=== PATIENT | female | born 1955 | race Caucasian/White ===

== ENCOUNTER 2018-11-02 20:15 | Emergency (ER) | payer MEDICARE, OTHER, SELFPAY ==
--- NOTE | 2018-11-02 20:36 | ED_ITS ---
HPI - Headache General Chief Complaint: Headache Stated Complaint: headache,jaw pain Time Seen by Provider: 11/02/18 20:28 Source: patient and family Mode of arrival: ambulatory Limitations: no limitations History of Present Illness HPI Narrative: 63-year-old female nonsmoker with sleep trouble presnts with a friend and the chief complaint of multiple episodes of severe left-sided head pain and radiation to the jaw over the course of the afternoon. She denies provocation or palliation. She states the episodes last a few minutes at most. She denies blurred vision or trouble with speech nor any other focal neurologic symptoms such as numbness, tingling or weakness. She denies any recent injury. She denies recent change in diet, exercise or medications. She does not have a significant headache history. She has no symptoms on arrival MD Complaint: headache Onset (ago): hour(s) Onset description: sudden Location: left Severity: moderate Quality: throbbing Relieving factors: nothing Exacerbating factors: none Associated symptoms: none Treatments prior to arrival: none Related Data Home Medications Medication Instructions Recorded Confirmed amitriptyline QDAY #0 03/16/17 11/02/18 calcitonin (salmon) #0 03/16/17 11/02/18 fluticasone propionate [Flonase #0 03/16/17 11/02/18 Allergy Relief] oxycodone-acetaminophen #0 03/16/17 11/02/18 wjoqzzl-[id number]-viis tab PO 11/02/18 11/02/18 clobetasol 0.05 % topical ointment 1 applictn TOP DAILY 11/02/18 11/02/18 estradiol VAG 11/02/18 11/02/18 lamotrigine 100 mg tablet 200 mg PO BID 11/02/18 11/02/18 losartan 50 mg tablet 50 mg PO DAILY 11/02/18 11/02/18 omeprazole 20 mg capsule,delayed 20 mg PO DAILY 11/02/18 11/02/18 release pramipexole 1 mg tablet 2 mg PO BID #0 tab 11/02/18 11/02/18 tolterodine 2 mg tablet 2 mg PO BID #0 tab 11/02/18 11/02/18 topiramate 100 mg tablet 200 mg PO BEDTIME #0 tab 11/02/18 11/02/18 tramadol 50 mg tablet 100 mg PO BID #0 tab 11/02/18 11/02/18 Allergies Allergy/AdvReac Type Severity Reaction Status Date / Time ketorolac [From TORADOL] Allergy Unknown Stomach Verified 11/02/18 20:41 Pain Penicillins [PENICILLINS] Allergy Unknown Swelling Verified 11/02/18 20:41 adhesive tape Allergy Skin Verified 11/02/18 20:41 Irritation lisinopril Allergy Muscle Pain Verified 11/02/18 20:41 Statins Allergy Severe Uncoded 11/02/18 14:02 Muscle pain Review of Systems Constitutional Constitutional: Denies chills, Denies fatigue, Denies fever(s), Denies frequent falls, Reports headache(s), Denies lethargy and Denies weakness Eyes Eyes: Denies change in vision, Denies eye discharge, Denies irritation and Denies loss of vision ENT Ears, Nose, Mouth, and Throat: Denies change in voice, Denies dizziness, Reports headache(s), Denies neck pain, Denies sore throat and Denies throat swelling Cardiovascular Cardiovascular: Denies chest pain, Denies irregular heart rhythm, Denies lightheadedness, Denies palpitations, Denies dyspnea, Denies dyspnea on exertion and Denies orthopnea Respiratory Respiratory: Denies cough, Denies dyspnea, Denies dyspnea on exertion and Denies wheezing Gastrointestinal Gastrointestinal: Denies abdominal pain, Denies change in bowel habits, Denies diarrhea, Denies nausea and Denies vomiting Genitourinary Genitourinary: Denies hematuria, Denies flank pain, Denies urinary incontinence and Denies urinary urgency Musculoskeletal Musculoskeletal: Denies back pain, Denies muscle weakness, Denies neck pain, Denies numbness and Denies tingling Integumentary/Breasts Skin/Breast: Denies pruritus, Denies erythema, Denies rash and Denies wounds Neurologic Neurologic: Denies behavioral changes, Denies confusion, Denies dizziness, Denies frequent falls, Reports headache(s), Denies loss of vision, Denies numbness, Denies tingling and Denies weakness Psychiatric Psychiatric: Denies anxiety, Denies behavioral changes, Denies confusion, Denies depression, Denies homicidal ideation and Denies suicidal ideation Endocrine Endocrine: Denies fatigue, Denies flushing and Denies palpitations Hematologic/Lymphatic Hematologic/Lymphatic: Denies easy bruising Allergic/Immunologic Allergic/Immunologic: Denies urticaria, Denies throat swelling and Denies wheezing PFSH Surgical History History of tonsillectomy Status post appendectomy Status post cholecystectomy Status post hernia repair (11/15/16) Status post hysterectomy Family History Brother Age: 66 Prostate cancer Heart disease Hypertension High cholesterol Brother Age: 69 Hypertension High cholesterol Brother Age: 71 Hypertension High cholesterol Depression Father Skin cancer High cholesterol Mother Breast cancer Brain tumor Stroke Grandfather Paranoid schizophrenia Stroke Grandmother Hypertension Sister Age: 80 Hypertension High cholesterol Sister Age: 77 Hypertension High cholesterol Social History Smoking Status: Never smoker Family History Brother Age: 66 Prostate cancer Heart disease Hypertension High cholesterol Brother Age: 69 Hypertension High cholesterol Brother Age: 71 Hypertension High cholesterol Depression Father Skin cancer High cholesterol Mother Breast cancer Brain tumor Stroke Grandfather Paranoid schizophrenia Stroke Grandmother Hypertension Sister Age: 80 Hypertension High cholesterol Sister Age: 77 Hypertension High cholesterol Social History Smoking Status: Never smoker Exam Narrative Exam Narrative: GENERAL: [63] year old patient appears stated age. Well- nourished, well-developed patient, in mild distress. HEAD: Atraumatic. Normocephalic. No pain on palpation of the jainism, no palpable blood vessels EYES: Pupils equal round and reactive. Extraocular motions intact. No scleral icterus. No injection or drainage. ENT: Nose without bleeding, purulent drainage. Throat without erythema, tonsillar hypertrophy or exudate. Airway patent. NECK: Trachea midline. Non tender CARDIOVASCULAR: Regular rate and rhythm without murmurs, gallops, or rubs. RESPIRATORY: Clear to auscultation. Breath sounds equal bilaterally. No wheezes, rales, or rhonchi. GASTROINTESTINAL: Abdomen soft, non-tender, nondistended. EXTREMITIES: No edema or joint tenderness. BACK: Nontender without deformity or crepitance. No flank tenderness. NEURO: AOx3. SKIN: No rash or erythema of visible areas Initial Vital Signs Initial Vital Signs: Vital Signs Temperature 97.9 F 11/02/18 20:41 Pulse Rate 70 11/02/18 20:41 Respiratory Rate 16 11/02/18 20:41 Blood Pressure 115/80 11/02/18 20:41 Pulse Oximetry 100 11/02/18 20:41 Course Orders Ordered: ED Orders 11/02/18 21:23 CT head/brain wo con Stat 11/02/18 21:30 Basic Metabolic Panel Stat C-Reactive Protein Quant Stat Complete Blood Count AUTO DIFF Stat Erythrocyte Sedimentation Rate Stat Discontinued Medications Dexamethasone (Decadron) 10 mg IV NOW ONE Stop: 11/02/18 21:22 Last Admin: 11/02/18 21:50 Dose: 10 mg Documented by: INES Diphenhydramine HCl (Benadryl) 25 mg IV NOW ONE Stop: 11/02/18 21:22 Last Admin: 11/02/18 21:45 Dose: 25 mg Documented by: INES Sodium Chloride (Normal Saline 0.9%) 1,000 mls @ 1,000 mls/hr IV BOLUS ONE Stop: 11/02/18 22:20 Last Infusion: 11/02/18 23:23 Dose: 0 mls/hr Documented by: Admin: 11/02/18 21:45 Dose: 1,000 mls/hr Documented by: INES Metoclopramide HCl (Reglan) 10 mg IV NOW ONE Stop: 11/02/18 21:22 Last Admin: 11/02/18 21:48 Dose: 10 mg Documented by: INES Reevaluation(s) Reevaluation #1: Significant improvement after above-stated therapies Vital Signs Vital signs: Vital Signs - 8 hr 11/02/18 20:41 11/02/18 23:10 Temperature 97.9 F Pulse Rate 70 72 Respiratory Rate 16 18 Blood Pressure 115/80 Blood Pressure [Left Arm] 112/84 Pulse Oximetry 100 98 MDM - Headache Lab Data Result diagrams: 11/02/18 21:30 11/02/18 21:30 Labs: Lab Results 11/02/18 11/02/18 Range/Units 21:30 21:30 WBC 6.2 (4.5-11.0) X10^3/uL RBC 4.38 (4.0-5.2) X10^6/uL Hgb 12.4 (12.0-16.0) g/dL Hct 37.0 (36-46) % MCV 84.6 (80-100) fL MCH 28.3 (26-34) PG MCHC 33.4 (30-36) % RDW 15.4 H (11.6-14.8) % Plt Count 283 (150-400) X10^3/uL Neut % (Auto) 65.9 (50-75) % Lymph % (Auto) 25.7 (25-40) % [place] % (Auto) 6.3 (3-14) % Eos % (Auto) 1.6 L (2-4) % Baso % (Auto) 0.5 (0-2) % Neut # (Auto) 4100 (6885-3324) /uL Lymph # (Auto) 1600 (0820-5398) /uL [place] # (Auto) 400 (0-900) /uL Eos # (Auto) 100 (0-450) /uL Baso # (Auto) 0 (0-100) /uL ESR 14 (0-20) MM/HR Sodium 144 (137-145) mmol/L Potassium 3.8 (3.4-5.1) mmol/L Chloride 106 (98-107) mmol/L Carbon Dioxide 25 (22-32) mmol/L BUN 19 H (7-17) mg/dL Creatinine 0.90 (0.52-1.04) mg/dL Estimated GFR > 60.0 (>60) mL/min BUN/Creatinine Ratio 21.1 (6-22) Glucose 84 (80-110) mg/dL Calcium 9.0 (8.4-10.2) mg/dL C-Reactive Protein < 0.5 (<1.0) mg/dL Urine Dip Bedside Urine Glucose Negative Bedside Urine Bilirubin - Negative Bedside Urine Ketone - Negative Urine Specific [place] 1.015 Bedside Urine Occult Blood - Negative Bedside Urine pH 7.0 Bedside Urine Protein - Negative Bedside Urine Urobilinogen 1+ 2mg Bedside Urine Nitrite - Negative Bedside Urine Leukocytes - Negative Esterase MDM Narrative Medical decision making narrative: Multiple etiologies for patient's symptoms considered including: [Subarachnoid hemorrhage versus migraine versus is a spasm versus dehydration versus a] Patient's symptoms improved or duration of stay with above-stated therapies. Findings and discharge diagnosis discussed with patient/family followed by verbalization of understanding Return precautions discussed with patient/family whom verbalize understanding. Discharge Plan Departure Patient Disposition: Home Clinical Impression: Headache Qualifiers: Headache type: unspecified Headache chronicity pattern: acute headache Int ractability: not intractable Qualified Code(s): R51 - Headache Discharge Date/Time: 11/02/18 23:23 Instructions: DI for Headache Activity Restrictions/Additional Instructions: *You have been diagnosed with [headache, resolved. Your exam, labs and CT scan are very reassuring] *What to do: *Take medications as directed: Tylenol or Motrin for pain *Follow up with your primary care provider in 2-3 days, call for an appointment. Let them know you were seen in the Emergency Department and that we ask that you be seen in follow up *Return to ER if you should have any new, worsening or concerning symptoms Prescriptions: No Action amitriptyline 25 MG tablet QDAY Qty: 0 RF: 0 calcitonin (salmon) 200 IU/PUFF spray,non-aerosol Qty: 0 RF: 0 oxycodone-acetaminophen 5 MG/325 MG tablet Qty: 0 RF: 0 fluticasone propionate [Flonase Allergy Relief] 9.9 ML spray,suspension Qty: 0 RF: 0 pramipexole [Mirapex] 1 mg tablet 2 mg PO BID Qty: 0 RF: 0 tolterodine [Detrol] 2 mg tablet 2 mg PO BID Qty: 0 RF: 0 topiramate [Topamax] 100 mg tablet 200 mg PO BEDTIME Qty: 0 RF: 0 tramadol 50 mg tablet 100 mg PO BID Qty: 0 RF: 0 ijisokc-jaxflvewb-psho tablet PO RF: 0 clobetasol 0.05 % ointment 1 applictn TOP DAILY RF: 0 estradiol VAG RF: 0 lamotrigine 100 mg tablet 200 mg PO BID RF: 0 losartan 50 mg tablet 50 mg PO DAILY RF: 0 omeprazole 20 mg capsule,delayed release(DR/EC) 20 mg PO DAILY RF: 0 Referrals: Dennise Hoyos MD [Primary Care Provider] -
[2018-11-02 20:41] VITALS: BP 115/80; PULSE 70; RESP 16; TEMP 36.6; O2SAT 100; BMI 37.8
--- NOTE | 2018-11-02 21:23 | DI.CT.S_ITS ---
PROCEDURE: CT HEAD/BRAIN WO CON INDICATIONS: headache, dizziness TECHNIQUE: Noncontrast 4.5 mm thick angled axial sections acquired from the foramen magnum to the vertex, with coronal and sagittal reformats. For radiation dose reduction, the following was used: automated exposure control, adjustment of mA and/or kV according to patient size. COMPARISON: None. FINDINGS: Image quality: Excellent. CSF spaces: Basal cisterns are patent. No extra-axial fluid collections. Ventricles are normal in size and shape. Brain: No midline shift. No intracranial masses or hemorrhage. [place]-white matter interface is normal. Skull and face: Calvarium and visualized facial bones are intact, without suspicious lesions. Sinuses: Visualized sinuses and mastoids are clear. IMPRESSION: No trauma found, no source of persistent headache and vertigo. Dictated by: Bryan Butler M.D. on 11/02/2018 at 21:50 Approved by: Bryan Butler M.D. on 11/02/2018 at 21:51
[2018-11-02] MEDS: SODIUM CHLORIDE 0.9% 1,000 ML 1000 ML IV (21:45)
[2018-11-02] MEDS: diphenhydrAMINE 50 MG/ML VIAL 25 MG IV (21:45)
[2018-11-02] MEDS: METOCLOPRAMIDE 10 MG/2 ML INJ IV (21:48)
[2018-11-02] MEDS: DEXAMETHASONE 10 MG/ML VIAL IV (21:50)
[2018-11-02 21:51] LABS: Add Manual Diff / Slide Review NO; Basophils Absolute Auto 0 /uL (0-100); Basophils Percent Auto 0.5 % (0-2); Eosinophils Absolute Auto 100 /uL (0-450); Eosinophils Percent Auto 1.6 % (2-4); Hemoglobin 12.4 g/dL (12.0-16.0); Lymphocytes Absolute Auto 1600 /uL (1100-4500); Lymphocytes Percent Auto 25.7 % (25-40); Mean Corpuscular HGB Conc 33.4 % (30-36); Mean Corpuscular Hemoglobin 28.3 PG (26-34); Mean Corpuscular Volume 84.6 fL (80-100); Monocytes Absolute Auto 400 /uL (0-900); Monocytes Percent Auto 6.3 % (3-14); Neutrophils Absolute Auto 4100 /uL (1500-7000); Neutrophils Percent Auto 65.9 % (50-75); Platelet Count 283 X10^3/uL (150-400); Red Blood Cell Count 4.38 X10^6/uL (4.0-5.2); Red Cell Distribution Width 15.4 % (11.6-14.8); White Blood Cell Count 6.2 X10^3/uL (4.5-11.0)
[2018-11-02 22:00] LABS: BUN Creatinine Ratio 21.1 (6-22); Blood Urea Nitrogen 19 mg/dL (7-17); Carbon Dioxide 25 mmol/L (22-32); Chloride 106 mmol/L (98-107); Estimated Glomerular Filt Rate > 60.0 mL/min (>60); Glucose 84 mg/dL (80-110); HEMOLYSIS < 15 (0-50); Potassium 3.8 mmol/L (3.4-5.1); Sodium 144 mmol/L (137-145)
[2018-11-02 22:03] LABS: C-Reactive Protein Quant < 0.5 mg/dL (<1.0)
[2018-11-02 22:18] LABS: Erythrocyte Sedimentation Rate 14 MM/HR (0-20)
[2018-11-02 23:10] VITALS: BP 112/84; PULSE 72; RESP 18; O2SAT 98
--- NOTE | 2018-11-02 23:23 | PC.NURSE ---
head ache gone she said.
== END 2018-11-02 23:23 | disposition home or self-care (01) ==
PROVIDERS: Emergency Provider Emergency Medicine; Family Provider Internal Medicine Gastroenterology; PCP Psychiatry & Neurology Neurology
DX: R51 Headache (principal); G47.33 Obstructive sleep apnea (adult) (pediatric); G47.00 Insomnia, unspecified; G47.19 Other hypersomnia; Z87.898 Personal history of other specified conditions; Z68.37 Body mass index [BMI] 37.0-37.9, adult
CPT/HCPCS: 36591; 70450; 80048; 81003; 85025; 85651; 86140; 96361; 96374; 96375; 99214; 99283; 99284; J1100; J1200; J2765

== ENCOUNTER → 2019-09-17 15:54 | Outpatient (CLI) | payer MEDICARE, OTHER, SELFPAY ==
[2019-09-19 06:50] LABS: COVID19 Sendout Not Detected (Not Detect)
== END ==
PROVIDERS: Family Provider Internal Medicine Gastroenterology; PCP Psychiatry & Neurology Neurology; Visit Provider Nurse Practitioner
DX: Z01.812 Encounter for preprocedural laboratory examination (principal)
CPT/HCPCS: 87635